=== PATIENT | male | born 1945 | race Two or more races ===

== ENCOUNTER → 2017-05-20 | Outpatient (REF) | payer MEDICARE ==
[2017-05-20 17:03] LABS: ALBUMIN 3.6 GM/DL (3.2-5.2); ALBUMIN/GLOBULIN RATIO 1.16 (1.00-1.93); ALKALINE PHOSPHATASE 87 U/L (45-117); ALT/SGPT 42 U/L (12-78); ANION GAP 9 MEQ/L (8-16); AST/SGOT 35 U/L (15-37); BILIRUBIN,TOTAL 0.6 MG/DL (0.2-1.0); BLOOD UREA NITROGEN 11 MG/DL (7-18); CALCIUM LEVEL 8.9 MG/DL (8.8-10.2); CARBON DIOXIDE LEVEL 29 MEQ/L (21-32); CHLORIDE LEVEL 102 MEQ/L (98-107); CREATININE FOR GFR 0.93 MG/DL (0.70-1.30); GLOMERULAR FILTRATION RATE > 60.0 (>42); GLUCOSE, FASTING 117 MG/DL (83-110); POTASSIUM SERUM 4.3 MEQ/L (3.5-5.1); SODIUM LEVEL 140 MEQ/L (136-145); TOTAL PROTEIN 6.7 GM/DL (6.4-8.2)
[2017-05-20 17:19] LABS: BASO # 0.1 K/mm3 (0.0-0.2); BASO % 1.9 % (0.0-1.0); EOS % 0.9 % (0.0-3.0); LARGE UNSTAINED CELL # 0.1 K/mm3 (0.0-0.4); LARGE UNSTAINED CELL % 2.7 % (0.0-4.0); LYMPH # 0.6 K/mm3 (1.5-4.5); LYMPH % 12.3 % (24.0-44.0); MEAN CORPUSCULAR HEMOGLOBIN 29.4 pg (27.0-33.0); MEAN CORPUSCULAR HGB CONC 33.2 g/dl (32.0-36.5); MEAN CORPUSCULAR VOLUME 88.6 fl (80.0-96.0); MONO # 0.4 K/mm3 (0.0-0.8); MONO % 7.2 % (0.0-5.0); NEUTROPHILS # 3.6 K/mm3 (1.8-7.7); NEUTROPHILS % 75.1 % (36.0-66.0); PLATELET COUNT, AUTOMATED 176 k/mm3 (150-450); RED CELL DISTRIBUTION WIDTH 13.2 % (11.5-14.5); WHITE BLOOD COUNT 4.8 K/mm3 (4.0-10.0)
[2017-05-23 00:06] LABS: Lyme Disease IgG/IgM Antibodie <0.91 ISR (0.00-0.90); Lyme Disease IgM Ab Quantitati <0.80 index (0.00-0.79)
== END ==
LOC: M SFHCCLAY 11:14
PROVIDERS: ATTEND Family Medicine
DX: R50.9 Fever, unspecified (principal)
CPT/HCPCS: 36415; 80053; 85025; 86617; G0463

== ENCOUNTER 2019-05-29 10:04 | Emergency (ER) | payer MEDICARE ==
[~2019-05-29] VITALS: Ht 185.4 cm; Wt 89.4 kg
[2019-05-29] MEDS ORDERED: BIMA01SOL OP (10:14)
[2019-05-29] MEDS ORDERED: FAMO40TA3 PO (10:14)
[2019-05-29] MEDS ORDERED: DORZ2SOL4 (10:14)
[2019-05-29 11:06] LABS: BASO % 0.5 % (0.0-1.0); EOS # 0.1 10^3/uL (0.0-0.50); EOS % 1.1 % (0.0-3.0); HEMATOCRIT 44.2 % (42.0-52.0); HEMOGLOBIN 14.6 g/dl (13.5-17.5); LYMPH # 1.1 10^3/uL (1.5-4.5); LYMPH % 14.3 % (24.0-44.0); MEAN CORPUSCULAR HEMOGLOBIN 29.8 pg (27.0-33.0); MEAN CORPUSCULAR VOLUME 90.2 fl (80.0-96.0); MONO # 0.6 10^3/uL (0.0-0.8); NEUTROPHILS # 5.7 10^3/uL (1.8-7.7); NEUTROPHILS % 75.6 % (36.0-66.0); PLATELET COUNT, AUTOMATED 186 10^3/uL (150-450); WHITE BLOOD COUNT 7.5 10^3/uL (4.0-10.0)
[2019-05-29 11:56] LABS: ERYTHROCYTE SEDIMENTATION RATE 12 mm/hr (0-20)
[2019-05-29 12:12] LABS: BLOOD UREA NITROGEN 15 MG/DL (7-18); C REACTIVE PROTEIN QUANTITATIV 0.54 MG/DL (0.00-0.30); CALCIUM LEVEL 8.2 MG/DL (8.8-10.2); CARBON DIOXIDE LEVEL 26 MEQ/L (21-32); CHLORIDE LEVEL 101 MEQ/L (98-107); CREATININE FOR GFR 1.04 MG/DL (0.70-1.30); GLOMERULAR FILTRATION RATE > 60.0 (>42); GLUCOSE, FASTING 132 MG/DL (70-100); POTASSIUM SERUM 4.3 MEQ/L (3.5-5.1); SODIUM LEVEL 135 MEQ/L (136-145)
[2019-05-29] MEDS ORDERED: ISOVUE-370 76% 100ML VIAL (Q9967) As Ordered ONE (12:17)
[2019-05-29] MEDS ORDERED: ACETAMINOPHEN 500 MG TAB PO ONE (12:45)
[2019-05-29] MEDS ORDERED: NS 1,000 ML IV ONE (12:45)
--- NOTE | 2019-05-29 13:48 | REPVR ---
EXAM: CT Maxillofacial With Contrast EXAM DATE/TIME: 05/29/2019 12:21 PM CLINICAL HISTORY: 73 years old, male; Mass, lump, or swelling and other: Facial erythema, left eye swelling w/tenderness TECHNIQUE: Imaging protocol: Computed tomography images of the face with intravenous contrast. Radiation optimization: All CT scans at this facility use at least one of these dose optimization techniques: automated exposure control; mA and/or kV adjustment per patient size (includes targeted exams where dose is matched to clinical indication); or iterative reconstruction. Contrast material: ISOVUE 370; Contrast volume: 75 ml; Contrast route: IV; COMPARISON: No relevant prior studies available. FINDINGS: Orbits: Left ocular surgery. Unremarkable appearance of the optic nerves and extraocular muscles. Mastoid air cells: No mastoid effusion. Sinuses: No sinus fluid. Bones/joints: No acute osseous pathology in the facial bones. Old left zygomatic arch fracture. Nasal cavity: Mild rightward deviation of the nasal septum with a right nasal septal spur. Lymph nodes: Subcentimeter lymph nodes. Vasculature: Vascular calcification. Soft tissues: Mild soft tissue swelling in the left frontal and supraorbital regions. IMPRESSION: 1. Mild soft tissue swelling in the left frontal and supraorbital regions. 2. Additional findings as described above. Electronically signed by: Kenan Robbins On 05/29/2019 13:48:01 PM
[2019-05-29] MEDS ORDERED: PRED10TA2 PO (15:34)
[2019-05-29] MEDS ORDERED: CLEO300C2 PO (15:34)
[2019-05-29] MEDS ORDERED: VIGA0.02 OS (15:34)
[2019-05-29 16:01] VITALS: BP 134/74
--- NOTE | 2019-06-01 10:52 | ER ---
DATE OF CONSULTATION: 05/31/2019 CHIEF COMPLAINT: Left facial swelling. HISTORY OF PRESENT ILLNESS: This is a 73-year-old male with extensive past ocular history all treated in [place] with a emission specialist with prior cyclophotocoagulation and is on Lumigan drops and has poor visual acuity in the left eye from this. Patient notes that approximately 1 week ago, he was walking outside and an branch brushed over the left side of his face. For several days, the patient just had mild excoriations in this area, but there was no evidence of any swelling or pain. Approximately 4 days after the injury, the patient noted some left facial swelling and some discomfort at that time and he presented to the emergency department. Patient notes that there is no visual changes, although he has poor visual acuity in the left eye from severe end-stage glaucoma and only has an inferior visual field secondary to this. He denies any history of shingles in the past or recent vaccines. The patient is in no acute distress. His is in the room. There are no floaters. No flashes. No discharge. PAST MEDICAL HISTORY: See chart. PAST OCULAR HISTORY: Severe end-stage glaucoma with a history of cyclophotocoagulation and is on Lumigan drops with poor visual acuity in the left eye all being treated in [place]. History of retinal detachment with laser and scleral buckle and eventually placement of silicone oil. He does not have an artist mannequin coloring while he is in [place] for approximately several months out of the year. Exam: On examination, patient was unable to be moved to the eye examination room at the time so visual acuity is not present. Pupils are unequal but round and react to light without afferent pupillary defect , he has a left mildly enlarged pupil secondary to surgery. Full EOM OU. inferior hemifield loss in the left eye, FTCF OD. Conjunctiva and sclera OD within normal limits. OS-mild injected, no discharge. Cornea - no infiltrate, no abrasion no dendrites no pseudodendrite. Lens - NS, Dilated exam - deferred, Lids/lash/adnexa - right wnl, left mild excoriations to the left restoration and forehead, no vesicles, no discharge no faust sign. ASSESSMENT/PLAN: Preseptal cellulitis versus herpes zoster ophthalmicus of the left face. Given the nature of the injury and presentation of symptoms, likely preseptal cellulitis versus zoster ophthalmicus. Patient does not have any history of shingles and has not had any recent vaccinations. There is no vesicular rash and there is no staining or corneal defects indicating the presence of virus. We discussed at length that this still could be viral in nature, however, given his presentation, I will be treating this as presumed preseptal cellulitis. If there were any changes to his symptoms or lack of improvement, then he should make plans to followup in my office within a few days to adjust the treatment as needed. The patient was already prescribed Keflex by a family friend, who is a physician. This will be changed to clindamycin. I will add Vigamox ophthalmic solution four times a day to the left eye and Medrol-dose pack of prednisolone to help with the facial swelling and discomfort. The patient tells me that he will be leaving to [place] soon and I suggested that maybe he should followup with an artist mannequin coloring that has extensive understanding of his past ocular history if he will be in that area. If not, I will plan to see him in the office this week. These findings were discussed with the patient and the while in the room and they were in agreement. A CT was performed. There was no evidence of orbital cellulitis. There was mild hyperdensity of the left eye, which goes along with the patient's past ocular history of retinal detachment and placement of silicone oil, which is still in his left eye. Office contact information was given to patient to follow up this week. JAAY
== END 2019-05-29 16:18 | disposition home or self-care (01) ==
LOC: M ED 10:04
DX: L03.211 Cellulitis of face (principal); H05.012 Cellulitis of left orbit; H40.9 Unspecified glaucoma
CPT/HCPCS: 70487; 80048; 83605; 85025; 85652; 86140; 96360; 96361; 99284; Q9967